=== PATIENT | female | born 1980 | race Caucasian/White ===

== ENCOUNTER 2019-03-02 10:59 | Day surgery (SDC) | payer OTHER ==
[~2019-03-02] VITALS: Ht 167.6 cm; Wt 80.5 kg
[~2019-03-02 10:59] MED LIST: None per pt
[2019-03-02] MEDS ORDERED: LACTATED RINGERS 1,000 ML IV SCH ×2 (11:24→15:42)
[2019-03-02 11:27] VITALS: BP 110/47
[2019-03-02 11:56] LABS: HCG UR SG 1.021 (1.003-1.030)
[2019-03-02] MEDS ORDERED: ONDANSETRON 2MG/ML, 2ML IV PRN (12:30)
[2019-03-02] MEDS ORDERED: FENTANYL PF 100 MCG/2ML IV PRN (12:30)
[2019-03-02] MEDS ORDERED: MEPERIDINE/PF 25MG/ML,1ML IVPush PRN (12:30)
[2019-03-02] MEDS ORDERED: HYDROmorphone 2 MG/ML, 1ML IVPush PRN (12:30)
[2019-03-02] MEDS ORDERED: PROMETHAZINE 25 MG/ML, 1ML IV PRN (12:30)
[2019-03-02] MEDS ORDERED: INDIGO CARMINE 0.8%, 5ML ONE (12:37)
[2019-03-02] MEDS ORDERED: GABAPENTIN 300 MG CAPSULE PO ONE (13:00)
[2019-03-02] MEDS ORDERED: OxyconTIN ER 10 MG TAB.ER PO ONE (13:00)
[2019-03-02] MEDS ORDERED: ACETAMINOPHEN 500 MG TABLET PO ONE (13:00)
[2019-03-02] MEDS ORDERED: FAMOTIDINE 20 MG TABLET PO ONE (13:00)
[2019-03-02] MEDS ORDERED: BUPIVACAINE/PF-EPI 0.25% 1:200K INFIL ONE (13:57)
[2019-03-02] MEDS ORDERED: HYDROcodone/APAP 5/325 TABLET PO PRN (16:00)
[2019-03-02] MEDS ORDERED: IBUPROFEN 600 MG TABLET PO PRN (16:00)
[2019-03-02] MEDS ORDERED: PROMETHAZINE 25 MG SUPP PR ONE (16:00)
[2019-03-02] MEDS ORDERED: OXYcodone 5 MG/5 ML ORAL.SOL UDC ONE (16:00)
[2019-03-02] MEDS ORDERED: ONDANSETRON 2MG/ML, 2ML IVPush PRN (16:00)
[2019-03-02] MEDS: OXYcodone 5 MG/5 ML ORAL.SOL UDC PO PRN ×2 (16:01→18:14)
== END 2019-03-02 18:45 | disposition home or self-care (01) ==
LOC: OR 10:59
PROVIDERS: ATTEND Obstetrics & Gynecology Female Pelvic Medicine and Reconstructive Surgery
DX: N92.0 Excessive and frequent menstruation with regular cycle (principal); N94.6 Dysmenorrhea, unspecified; Q51.3 Bicornate uterus; N73.6 Female pelvic peritoneal adhesions (postinfective); N72 Inflammatory disease of cervix uteri; N88.8 Other specified noninflammatory disorders of cervix uteri; Q52.10 Doubling of vagina, unspecified; N83.8 Other noninflammatory disorders of ovary, fallopian tube and broad ligament; Z91.040 Latex allergy status; Z90.49 Acquired absence of other specified parts of digestive tract
CPT/HCPCS: 58552; 81025; 88307; S2900; J0690; J1100; J2250; J2405; J2704; J3010